=== PATIENT | male | born 1970 | race African-American/Black ===

== ENCOUNTER 2022-08-12 10:19 | Emergency (ER) | payer OTHER ==
[~2022-08-12] VITALS: Ht 185.4 cm; Wt 122.5 kg
--- NOTE | 2022-08-12 10:26 | NUR ---
BIB [facility] 37 FROM WORK, INCREASED ANXIETY/SHAKING/HYPERVENTILATING DRIVING TO WORK,"FEELS BETTER" UPON ARRIVAL. PT ATTACHED TO MONITOR, AWAITING MD JARVIS.
--- NOTE | 2022-08-12 11:15 | NUR ---
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
[2022-08-12 11:57] LABS: BASOPHILS % (AUTO) 0.5 % (0.0-2.0); EOSINOPHILS % (AUTO) 0.9 % (0.0-6.0); HEMATOCRIT 45 % (39-51); HEMOGLOBIN 14.7 g/dL (13.5-17.5); LYMPHOCYTES # (AUTO) 1.4 K/uL (0.8-4.8); LYMPHOCYTES % (AUTO) 29.8 % (20.0-44.0); MEAN CORPUSCULAR HGB CONC 33 g/dl (31.0-36.0); MEAN CORPUSCULAR VOLUME 85 fL (80-96); MONOCYTES # (AUTO) 0.5 K/uL (0.1-1.30); MONOCYTES % (AUTO) 10.6 % (2.0-12.0); NEUTROPHILS # (AUTO) 2.8 K/uL (1.8-8.9); NEUTROPHILS % (AUTO) 58.2 % (43.0-81.0); PLATELET COUNT (AUTO) 233 K/uL (150-450); RED BLOOD CELL COUNT(AUTO) 5.27 MIL/uL (4.5-6.0); WHITE BLOOD COUNT (AUTO) 4.8 K/uL (4.3-11.0)
[2022-08-12 12:24] LABS: CALCIUM, SERUM 9.2 mg/dL (8.5-10.1); CREATININE 1.1 mg/dL (0.6-1.3); POTASSIUM 3.5 mmol/L (3.5-5.1)
--- NOTE | 2022-08-12 12:52 | NUR ---
Patient discharged to home in stable condition. Written and verbal after care instructions given. Patient verbalizes understanding of instruction.
[2022-08-12 12:53] VITALS: BP 138/87
== END 2022-08-12 12:52 | disposition home or self-care (01) ==
LOC: ER 10:33
DX: E11.65 Type 2 diabetes mellitus with hyperglycemia (principal); I10 Essential (primary) hypertension
CPT/HCPCS: 36415; 80048-TC; 82962-TC; 84484-TC; 85025-TC

== ENCOUNTER 2024-07-20 18:12 | Emergency (ER) | payer OTHER ==
[~2024-07-20] VITALS: Ht 167.6 cm; Wt 81.6 kg
[2024-07-20] MEDS: TDAP [DIPH/PERTUSSIS/TET] 0.5 ML VIAL IM ONE (19:00)
[2024-07-20] MEDS ORDERED: TDAP [DIPH/PERTUSSIS/TET] 0.5 ML VIAL IM ONE (19:22)
[2024-07-20 23:35] LABS: BASOPHILS % (AUTO) 0.4 % (0.0-2.0); EOSINOPHILS % (AUTO) 0.1 % (0.0-6.0); HEMATOCRIT 42 % (39-51); LYMPHOCYTES # (AUTO) 1.1 K/uL (0.8-4.8); LYMPHOCYTES % (AUTO) 11.3 % (20.0-44.0); MEAN CORPUSCULAR HEMOGLOBIN 28 PG (26.0-33.0); MEAN CORPUSCULAR HGB CONC 33 g/dl (31.0-36.0); MEAN CORPUSCULAR VOLUME 85 fL (80-96); MONOCYTES # (AUTO) 0.9 K/uL (0.1-1.30); MONOCYTES % (AUTO) 9.1 % (2.0-12.0); NEUTROPHILS # (AUTO) 7.6 K/uL (1.8-8.9); NEUTROPHILS % (AUTO) 79.1 % (43.0-81.0); PLATELET COUNT (AUTO) 222 K/uL (150-450); RED BLOOD CELL COUNT(AUTO) 4.95 MIL/uL (4.5-6.0); RED CELL DISTRIBUTION WIDTH 15.4 % (11.5-15.0); WHITE BLOOD COUNT (AUTO) 9.7 K/uL (4.3-11.0)
[2024-07-20 23:46] LABS: CALCIUM, SERUM 9.1 mg/dL (8.5-10.1); CREATININE 0.7 mg/dL (0.6-1.3); POTASSIUM 3.4 mmol/L (3.5-5.1)
[2024-07-20 23:49] LABS: INR 1.04 (0.91-1.10); PARTIAL THROMBOPLASTIN TIME 24.4 SEC (24.3-34.3)
[2024-07-21 00:47] VITALS: BP 150/82; TEMP 98.1; O2SAT 98
== END 2024-07-21 00:48 ==
LOC: ER 18:21
DX: S32.591S Other specified fracture of right pubis, sequela (principal); I10 Essential (primary) hypertension; E11.9 Type 2 diabetes mellitus without complications; Z60.2 Problems related to living alone; Z20.822 Contact with and (suspected) exposure to COVID-19; V03.99XS Pedestrian with other conveyance injured in collision with car, pick-up truck or van, unspecified whether traffic or nontraffic accident, sequela; Y93.89 Activity, other specified; Y92.410 Unspecified street and highway as the place of occurrence of the external cause; Y99.8 Other external cause status
CPT/HCPCS: 36415; 72131-TC; 72170-TC; 72192-TC; 80048-TC; 85025-TC; 85730-TC; 86850-TC; 90715